=== PATIENT | female | born 1950 | race Two or more races ===

== ENCOUNTER 2019-12-13 20:50 | Inpatient (IN) | payer MEDICARE, MEDICAID ==
[~2019-12-13] VITALS: Ht 172.7 cm; Wt 64.4 kg
[2019-12-13] MEDS ORDERED: ONDANSETRON HCL 4 MG/2 ML VIAL IV ONE (22:45)
[2019-12-13] MEDS ORDERED: MORPHINE SULFATE 4 MG/ML SYR/VIAL IV ONE (22:45)
[2019-12-13 23:05] LABS: Basophils # (auto) 0 10 ^3/uL (0-0.2); Basophils % (auto) 0.4 % (0.0-2.0); Eosinophils # (auto) 0 10 ^3/uL (0-0.8); Hemoglobin 8.3 g/dL (12.2-16.2); Mean Corpuscular Volume 72.8 fL (80.0-100.0)
[2019-12-13 23:08] LABS: Eosinophils % (auto) 0.4 % (0.0-7.0); Hematocrit 26.1 % (36.0-46.0); Lymphocytes # (auto) 1.1 10 ^3/uL (0.4-5.4); Lymphocytes % (auto) 12.9 % (10.0-50.0); Mean Corpuscular Hemoglobin 23.1 pg (28.0-32.0); Mean Corpuscular Hgb Conc. 31.8 g/dL (32.0-36.0); Monocytes # (auto) 0.6 10 ^3/uL (0-1.3); Monocytes % (auto) 7.7 % (0.0-12.0); Neutrophils # (auto) 6.5 10 ^3/uL (1.6-8.6); Neutrophils % (auto) 78.6 % (37.0-80.0); Platelet Count (auto) 133 10^3/uL (140-450); Red Blood Cells 3.58 10^6/uL (4.0-5.20); Red Cell Distribution Width 16.5 % (11.8-14.3); White Blood Cell 8.3 10^3/uL (4.4-10.8)
[2019-12-13 23:16] LABS: Albumin 3.4 g/dL (3.4-5.0); Calcium 8.2 mg/dL (8.5-10.1); Magnesium 2.2 mg/dL (1.6-2.6); Potassium 3.8 mmol/L (3.5-5.1)
[2019-12-13 23:19] LABS: BUN/Creatinine Ratio 17.9
[2019-12-13 23:23] LABS: Bilirubin, Total 0.3 mg/dL (0.2-1.0); Total Protein 6.9 g/dL (6.4-8.2)
[2019-12-13 23:39] LABS: INR 0.95 (0.9-1.15); Partial Thromboplastin Time 24.2 sec (23.0-31.2)
[2019-12-14] MEDS ORDERED: IOHEXOL 350 MG/ML 100ML IJ ONE (02:05)
[2019-12-14] MEDS ORDERED: ENOXAPARIN SOD 80 MG/0.8ML SYRINGE SC ONE (05:15)
[2019-12-14] MEDS ORDERED: MORPHINE SULFATE 4 MG/ML SYR/VIAL IV PRN (06:15)
[2019-12-14] MEDS ORDERED: METOPROLOL TARTRATE 1MG/1ML-5ML VIAL IV PRN (06:15)
[2019-12-14] MEDS ORDERED: ACETAMINOPHEN 325 MG TAB PO PRN (06:15)
[2019-12-14] MEDS ORDERED: NITROGLYCERIN 0.4 MG SL TAB SL PRN (06:15)
[2019-12-14] MEDS ORDERED: ONDANSETRON HCL 4 MG/2 ML VIAL IV PRN (06:15)
[2019-12-14] MEDS: SODIUM CHLORIDE 0.9% 1,000 ML IV SCH ×2 (06:58→19:17)
[2019-12-14] MEDS: ASPirin 81 mg TAB PO SCH (10:44)
[2019-12-14] MEDS: CLOPIDOGREL BISULFATE 75 MG TAB PO SCH (10:44)
[2019-12-14] MEDS: CARVEDILOL 3.125 MG TAB PO SCH ×2 (10:45→21:54)
[2019-12-14] MEDS: LISINOPRIL 10 MG TAB PO SCH (10:47)
[2019-12-14] MEDS: ENOXAPARIN SOD 80 MG/0.8ML SYRINGE SC SCH ×2 (10:53→21:56)
[2019-12-14] MEDS: DOCUSATE SOD 100 MG CAP PO SCH (10:54)
[2019-12-14 13:00] VITALS: BP_SYST 113; BP_SYST 133; BP_DIAS 48; BP_DIAS 55
[2019-12-14 13:30] VITALS: BP 133/55
[2019-12-14] MEDS ORDERED: LOSA-69 PO (15:44)
[2019-12-14] MEDS ORDERED: METO25TA93 PO (15:44)
[2019-12-14] MEDS ORDERED: AMLO5TAB15 PO (15:44)
[2019-12-14] MEDS ORDERED: ROSU1TAB14 PO (15:44)
[2019-12-14] MEDS ORDERED: LEVO125T7 PO (15:44)
[2019-12-14] MEDS ORDERED: TRAM50TA2 PO (15:44)
[2019-12-14] MEDS ORDERED: ASPI-543 PO (15:44)
[2019-12-14 17:00] VITALS: BP 113/48
[2019-12-14 21:47] LABS: % Iron Saturation 4.5 % (15-50)
[2019-12-14] MEDS: FAMOTIDINE 20 MG TAB PO SCH (21:54)
[2019-12-14] MEDS: ATORVASTATIN 20 MG TAB PO SCH (21:54)
[2019-12-14 22:41] VITALS: BP 128/45
[2019-12-15 05:20] VITALS: BP 135/54
[2019-12-15 08:25] VITALS: BP 120/59
[2019-12-15] MEDS: SODIUM CHLORIDE 0.9% 1,000 ML IV SCH (08:50)
[2019-12-15] MEDS: FAMOTIDINE 20 MG TAB PO SCH ×2 (09:34→22:20)
[2019-12-15] MEDS: ASPirin 81 mg TAB PO SCH (09:34)
[2019-12-15] MEDS: CLOPIDOGREL BISULFATE 75 MG TAB PO SCH (09:34)
[2019-12-15] MEDS: ENOXAPARIN SOD 80 MG/0.8ML SYRINGE SC SCH ×2 (09:35→22:00)
[2019-12-15] MEDS: DOCUSATE SOD 100 MG CAP PO SCH (09:44)
[2019-12-15] MEDS: CARVEDILOL 3.125 MG TAB PO SCH ×2 (10:00→22:00)
[2019-12-15] MEDS: LISINOPRIL 10 MG TAB PO SCH (10:00)
[2019-12-15 11:21] LABS: Carcinoembryonic Antigen < 0.50 ng/mL (<5.0 OR =)
[2019-12-15 13:00] VITALS: BP 116/85
[2019-12-15 16:06] VITALS: BP 109/61
[2019-12-15] MEDS: ATORVASTATIN 20 MG TAB PO SCH (22:20)
[2019-12-16] MEDS: SODIUM CHLORIDE 0.9% 1,000 ML IV SCH ×2 (00:30→11:30)
[2019-12-16 05:00] VITALS: BP 104/43
[2019-12-16] MEDS ORDERED: ADENOSINE 57 MG in GIVE UN-DILUTED 0 ML IV STA (08:10)
[2019-12-16 09:00] VITALS: BP 151/56
[2019-12-16] MEDS: DOCUSATE SOD 100 MG CAP PO SCH (10:54)
[2019-12-16] MEDS: FAMOTIDINE 20 MG TAB PO SCH ×2 (10:54→22:18)
[2019-12-16] MEDS: ASPirin 81 mg TAB PO SCH (10:54)
[2019-12-16] MEDS: CARVEDILOL 3.125 MG TAB PO SCH ×2 (10:55→22:19)
[2019-12-16] MEDS: CLOPIDOGREL BISULFATE 75 MG TAB PO SCH (10:55)
[2019-12-16] MEDS: LISINOPRIL 10 MG TAB PO SCH (10:56)
[2019-12-16] MEDS: ENOXAPARIN SOD 80 MG/0.8ML SYRINGE SC SCH ×2 (10:56→22:17)
[2019-12-16 11:15] VITALS: BP 145/56
[2019-12-16 13:00] VITALS: BP 147/62
[2019-12-16 16:50] VITALS: BP 151/51
[2019-12-16 22:11] VITALS: BP 136/56
[2019-12-16] MEDS: ATORVASTATIN 20 MG TAB PO SCH (22:22)
[2019-12-17] MEDS: SODIUM CHLORIDE 0.9% 1,000 ML IV SCH ×2 (00:50→14:10)
[2019-12-17 05:10] VITALS: BP 124/68
[2019-12-17 08:41] VITALS: BP 131/66
[2019-12-17] MEDS: DOCUSATE SOD 100 MG CAP PO SCH (10:38)
[2019-12-17] MEDS: CARVEDILOL 3.125 MG TAB PO SCH ×2 (10:39→22:23)
[2019-12-17] MEDS: FAMOTIDINE 20 MG TAB PO SCH ×2 (10:40→22:23)
[2019-12-17] MEDS: LISINOPRIL 10 MG TAB PO SCH (10:40)
[2019-12-17] MEDS ORDERED: LACTULOSE 20Gm/30ML SOLN PO ONE (10:45)
[2019-12-17] MEDS ORDERED: METOCLOPRAMIDE HCL 5MG/ml INJ 2ml VIAL IV ONE (11:00)
[2019-12-17 12:10] VITALS: BP 130/70
[2019-12-17] MEDS ORDERED: LIDOCAINE VISCOUS 2% 15ML UD ONE (12:32)
[2019-12-17] MEDS ORDERED: diphenhdrAMINE HCL 50 MG/1 ML VL ONE (12:33)
[2019-12-17] MEDS: MIDAZOLAM HCL 5 MG/ML-1ML VIAL ONE ×3 (15:48→16:03)
[2019-12-17] MEDS: fentaNYL CITRATE 100 MCG/2 ML VL ONE ×2 (15:48→15:56)
[2019-12-17] MEDS ORDERED: SODIUM CHLORIDE LOCK 10 ML ONE (16:07)
[2019-12-17] MEDS ORDERED: EPINEPHrine HCL 1 MG/1 ML AMP ONE (16:07)
[2019-12-17 17:12] VITALS: BP 154/76
[2019-12-17 19:09] LABS: Basophils # (auto) 0 10 ^3/uL (0-0.2); Hemoglobin 7.6 g/dL (12.2-16.2); Lymphocytes # (auto) 1.4 10 ^3/uL (0.4-5.4); Mean Corpuscular Hgb Conc. 30.7 g/dL (32.0-36.0); Mean Corpuscular Volume 74.1 fL (80.0-100.0); Monocytes # (auto) 0.6 10 ^3/uL (0-1.3); Neutrophils # (auto) 4.4 10 ^3/uL (1.6-8.6); White Blood Cell 6.6 10^3/uL (4.4-10.8)
[2019-12-17 19:10] LABS: Basophils % (auto) 0.5 % (0.0-2.0); Eosinophils # (auto) 0.2 10 ^3/uL (0-0.8); Eosinophils % (auto) 2.3 % (0.0-7.0); Hematocrit 24.6 % (36.0-46.0); Lymphocytes % (auto) 21.8 % (10.0-50.0); Mean Corpuscular Hemoglobin 22.8 pg (28.0-32.0); Monocytes % (auto) 9.2 % (0.0-12.0); Neutrophils % (auto) 66.2 % (37.0-80.0); Nucleated Red Blood Cells % 0.1 %; Platelet Count (auto) 128 10^3/uL (140-450); Red Blood Cells 3.32 10^6/uL (4.0-5.20); Red Cell Distribution Width 16.4 % (11.8-14.3)
[2019-12-17 19:18] LABS: INR 0.98 (0.9-1.15)
[2019-12-17 19:23] LABS: BUN/Creatinine Ratio 16.9; Potassium 3.7 mmol/L (3.5-5.1)
[2019-12-17 22:00] VITALS: BP 146/73
[2019-12-17] MEDS: ATORVASTATIN 20 MG TAB PO SCH (22:23)
[2019-12-18] MEDS: SODIUM CHLORIDE 0.9% 1,000 ML IV SCH ×3 (03:30→22:10)
[2019-12-18 03:46] LABS: Hemoglobin 7.2 g/dL (12.2-16.2)
[2019-12-18 03:50] LABS: Hematocrit 22.8 % (36.0-46.0)
[2019-12-18 05:00] VITALS: BP 130/53
[2019-12-18 09:00] VITALS: BP 134/61
[2019-12-18] MEDS: FAMOTIDINE 20 MG TAB PO SCH (09:39)
[2019-12-18] MEDS: CARVEDILOL 3.125 MG TAB PO SCH ×2 (09:39→22:03)
[2019-12-18] MEDS: LISINOPRIL 10 MG TAB PO SCH (09:39)
[2019-12-18] MEDS: DOCUSATE SOD 100 MG CAP PO SCH (09:39)
[2019-12-18] MEDS: PANTOPRAZOLE 40mg/50ML NS AE 50 ML IV SCH ×3 (10:52→19:35)
[2019-12-18 10:56] LABS: Hemoglobin 7.7 g/dL (12.2-16.2)
[2019-12-18 10:57] LABS: Hematocrit 24.6 % (36.0-46.0)
[2019-12-18 12:45] VITALS: BP 126/58
[2019-12-18 16:28] VITALS: BP 123/48
[2019-12-18 22:00] VITALS: BP 142/66
[2019-12-18] MEDS: ATORVASTATIN 20 MG TAB PO SCH (22:03)
[2019-12-19] VITALS (7 sets, daily range): BP systolic 123–156; BP diastolic 49–62
[2019-12-19] MEDS: PANTOPRAZOLE 40mg/50ML NS AE 50 ML IV SCH ×5 (00:41→21:00)
[2019-12-19 05:40] LABS: Basophils # (auto) 0 10 ^3/uL (0-0.2); Eosinophils # (auto) 0.2 10 ^3/uL (0-0.8); Lymphocytes # (auto) 1.5 10 ^3/uL (0.4-5.4); Monocytes # (auto) 0.5 10 ^3/uL (0-1.3); Red Cell Distribution Width 16.7 % (11.8-14.3)
[2019-12-19 05:42] LABS: Basophils % (auto) 0.4 % (0.0-2.0); Eosinophils % (auto) 4.6 % (0.0-7.0); Hematocrit 21.6 % (36.0-46.0); Lymphocytes % (auto) 30.9 % (10.0-50.0); Mean Corpuscular Hemoglobin 23.7 pg (28.0-32.0); Mean Corpuscular Hgb Conc. 32.4 g/dL (32.0-36.0); Monocytes % (auto) 10.7 % (0.0-12.0); Neutrophils # (auto) 2.6 10 ^3/uL (1.6-8.6); Neutrophils % (auto) 53.4 % (37.0-80.0); Platelet Count (auto) 111 10^3/uL (140-450); Red Blood Cells 2.96 10^6/uL (4.0-5.20); White Blood Cell 4.9 10^3/uL (4.4-10.8)
[2019-12-19] MEDS: LISINOPRIL 10 MG TAB PO SCH (09:46)
[2019-12-19] MEDS: DOCUSATE SOD 100 MG CAP PO SCH (09:46)
[2019-12-19] MEDS: CARVEDILOL 3.125 MG TAB PO SCH ×2 (09:48→21:02)
[2019-12-19] MEDS: SODIUM CHLORIDE 0.9% 1,000 ML IV SCH (18:17)
[2019-12-19 18:53] LABS: Basophils # (auto) 0 10 ^3/uL (0-0.2); Monocytes # (auto) 0.7 10 ^3/uL (0-1.3); Monocytes % (auto) 11.9 % (0.0-12.0)
[2019-12-19 18:56] LABS: Basophils % (auto) 0.5 % (0.0-2.0); Eosinophils # (auto) 0.2 10 ^3/uL (0-0.8); Hematocrit 26.1 % (36.0-46.0); Hemoglobin 8.5 g/dL (12.2-16.2); Lymphocytes # (auto) 1.7 10 ^3/uL (0.4-5.4); Lymphocytes % (auto) 29.6 % (10.0-50.0); Mean Corpuscular Hemoglobin 24.3 pg (28.0-32.0); Mean Corpuscular Hgb Conc. 32.6 g/dL (32.0-36.0); Mean Corpuscular Volume 74.4 fL (80.0-100.0); Nucleated Red Blood Cells % 0.1 %; Platelet Count (auto) 117 10^3/uL (140-450); Red Blood Cells 3.51 10^6/uL (4.0-5.20); Red Cell Distribution Width 17.5 % (11.8-14.3); White Blood Cell 5.6 10^3/uL (4.4-10.8)
[2019-12-19] MEDS: ATORVASTATIN 20 MG TAB PO SCH (21:02)
[2019-12-20] MEDS: PANTOPRAZOLE 40mg/50ML NS AE 50 ML IV SCH ×5 (02:04→22:30)
[2019-12-20 05:00] VITALS: BP 134/55
[2019-12-20 08:00] VITALS: BP 122/56
[2019-12-20] MEDS: SODIUM CHLORIDE 0.9% 1,000 ML IV SCH ×2 (08:50→22:02)
[2019-12-20] MEDS: DOCUSATE SOD 100 MG CAP PO SCH (10:00)
[2019-12-20] MEDS: LISINOPRIL 10 MG TAB PO SCH ×2 (10:00→11:29)
[2019-12-20] MEDS: CARVEDILOL 3.125 MG TAB PO SCH ×2 (10:15→11:29)
[2019-12-20 12:00] VITALS: BP 153/60
[2019-12-20 16:00] VITALS: BP 132/60
[2019-12-20 16:11] LABS: Basophils # (auto) 0 10 ^3/uL (0-0.2); Basophils % (auto) 0.4 % (0.0-2.0); Eosinophils # (auto) 0.2 10 ^3/uL (0-0.8); Hemoglobin 8.6 g/dL (12.2-16.2); Lymphocytes # (auto) 1.8 10 ^3/uL (0.4-5.4); Nucleated Red Blood Cells % 0.1 %; Red Cell Distribution Width 17.7 % (11.8-14.3)
[2019-12-20 16:12] LABS: Eosinophils % (auto) 2.9 % (0.0-7.0); Hematocrit 26.9 % (36.0-46.0); Lymphocytes % (auto) 21.7 % (10.0-50.0); Mean Corpuscular Hemoglobin 23.8 pg (28.0-32.0); Mean Corpuscular Volume 74.5 fL (80.0-100.0); Monocytes # (auto) 0.8 10 ^3/uL (0-1.3); Neutrophils # (auto) 5.4 10 ^3/uL (1.6-8.6); Platelet Count (auto) 125 10^3/uL (140-450); Red Blood Cells 3.61 10^6/uL (4.0-5.20); White Blood Cell 8.2 10^3/uL (4.4-10.8)
[2019-12-20 21:00] VITALS: BP 130/45
[2019-12-20] MEDS: ATORVASTATIN 20 MG TAB PO SCH (21:53)
[2019-12-21] MEDS: PANTOPRAZOLE 40mg/50ML NS AE 50 ML IV SCH ×3 (03:20→13:00)
[2019-12-21 05:00] VITALS: BP 131/63
[2019-12-21 07:46] LABS: Basophils # (auto) 0 10 ^3/uL (0-0.2); Hemoglobin 8.6 g/dL (12.2-16.2); Monocytes # (auto) 0.7 10 ^3/uL (0-1.3); Neutrophils # (auto) 3.2 10 ^3/uL (1.6-8.6)
[2019-12-21 07:50] LABS: Basophils % (auto) 0.5 % (0.0-2.0); Eosinophils # (auto) 0.3 10 ^3/uL (0-0.8); Eosinophils % (auto) 4.4 % (0.0-7.0); Hematocrit 26.3 % (36.0-46.0); Lymphocytes % (auto) 32.2 % (10.0-50.0); Mean Corpuscular Hemoglobin 24.4 pg (28.0-32.0); Mean Corpuscular Hgb Conc. 32.7 g/dL (32.0-36.0); Mean Corpuscular Volume 74.5 fL (80.0-100.0); Monocytes % (auto) 11.3 % (0.0-12.0); Neutrophils % (auto) 51.6 % (37.0-80.0); Platelet Count (auto) 120 10^3/uL (140-450); Red Blood Cells 3.52 10^6/uL (4.0-5.20); Red Cell Distribution Width 17.8 % (11.8-14.3); White Blood Cell 6.2 10^3/uL (4.4-10.8)
[2019-12-21 08:38] VITALS: BP 141/62
[2019-12-21] MEDS: CARVEDILOL 3.125 MG TAB PO SCH (09:24)
[2019-12-21] MEDS: DOCUSATE SOD 100 MG CAP PO SCH (09:24)
[2019-12-21] MEDS: LISINOPRIL 10 MG TAB PO SCH (09:25)
[2019-12-21] MEDS: SODIUM CHLORIDE 0.9% 1,000 ML IV SCH (11:30)
[2019-12-21 12:40] VITALS: BP 133/60
[2019-12-21 12:51] VITALS: BP 133/60
== END 2019-12-21 15:00 | disposition home or self-care (01) | DRG 280 ==
LOC: ER 20:50 → EDBD 20:50 → TELE 20:51 → TELE-CENTR 12-14 11:56
PROVIDERS: ADMIT Hospitalist; ATTEND Family Medicine
PROC: 4A02XM4 Measurement of Cardiac Total Activity, External Approach (ICD-10-PCS; 2019-12-16)
PROC: 3E033HZ Introduction of Radioactive Substance into Peripheral Vein, Percutaneous Approach (ICD-10-PCS; 2019-12-16)
PROC: 0DB68ZX Excision of Stomach, Via Natural or Artificial Opening Endoscopic, Diagnostic (ICD-10-PCS; 2019-12-17)
PROC: 0DB88ZX Excision of Small Intestine, Via Natural or Artificial Opening Endoscopic, Diagnostic (ICD-10-PCS; 2019-12-17)
PROC: 30233N1 Transfusion of Nonautologous Red Blood Cells into Peripheral Vein, Percutaneous Approach (ICD-10-PCS; principal; 2019-12-19)
DX: I21.4 Non-ST elevation (NSTEMI) myocardial infarction (principal); K29.51 Unspecified chronic gastritis with bleeding; R71.0 Precipitous drop in hematocrit; E78.00 Pure hypercholesterolemia, unspecified; E78.5 Hyperlipidemia, unspecified; I11.9 Hypertensive heart disease without heart failure; K44.9 Diaphragmatic hernia without obstruction or gangrene; Z83.3 Family history of diabetes mellitus; Z87.891 Personal history of nicotine dependence; Z95.2 Presence of prosthetic heart valve; Z91.011 Allergy to milk products; B96.81 Helicobacter pylori [H. pylori] as the cause of diseases classified elsewhere
CPT/HCPCS: 36415; 43239; 70450; 71045; 71275; 78452; 80048; 80053; 82378; 82607; 83540; 83550; 83735; 83880; 84443; 84484; 85014; 85018; 85025; 85379; 85610; 85730; 86850; 86900; 86901; 86920; 93005; 93017; 93306; 94640; G0378; J0153; J0171; J2250; J2405